=== PATIENT | female | born 1950 | race Caucasian/White ===

== ENCOUNTER → 2017-07-07 | Outpatient (CLI) | payer BC, MEDICARE ==
--- NOTE | 2017-07-09 07:08 | MM ---
Reason for exam: screening (asymptomatic). Last mammogram was performed 2 years and 6 months ago. History: Patient is postmenopausal and had first child at age 32. Benign stereotactic core biopsy of the left breast, August 2012. Physical Findings: A clinical breast exam by your physician is recommended on an annual basis and results should be correlated with mammographic findings. MG 3D Screening Mammo W/Cad Bilateral CC and MLO view(s) were taken. Prior study comparison: January 18, 2015, bilateral MG screening mammo w CAD. July 22, 2013, bilateral digital screening mammo w/CAD. The breast tissue is heterogeneously dense. This may lower the sensitivity of mammography. Finding: There are typically benign round calcifications in both breasts. Previous mammotome biopsy in the left breast. Asymmetric breast tissue left upper quadrant, stable. There is no discrete abnormality. ASSESSMENT: Benign, BI-RAD 2 RECOMMENDATION: Routine screening mammogram of both breasts in 1 year.
== END | disposition home or self-care (01) ==
LOC: RADMAMWWP 11:56
PROVIDERS: ATTEND Family Medicine
DX: Z12.31 Encounter for screening mammogram for malignant neoplasm of breast (principal)
CPT/HCPCS: 77063; G0202

== ENCOUNTER → 2018-11-22 | Outpatient (CLI) | payer MEDICARE ==
--- NOTE | 2018-11-25 11:05 | MM ---
Reason for exam: screening (asymptomatic). Last mammogram was performed 1 year and 5 months ago. History: Patient is postmenopausal and had first child at age 32. Benign stereotactic core biopsy of the left breast, August 2012. Physical Findings: A clinical breast exam by your physician is recommended on an annual basis and results should be correlated with mammographic findings. MG 3D Screening Mammo W/Cad Bilateral CC and MLO view(s) were taken. Prior study comparison: July 07, 2017, bilateral MG 3d screening mammo w/cad. January 18, 2015, bilateral MG screening mammo w CAD. There are benign appearing round calcifications bilaterally. No significant changes when compared with prior studies. ASSESSMENT: Benign, BI-RAD 2 RECOMMENDATION: Routine screening mammogram of both breasts in 1 year.
== END | disposition home or self-care (01) ==
LOC: RADMAMWWP 10:40
PROVIDERS: ATTEND Family Medicine
DX: Z12.31 Encounter for screening mammogram for malignant neoplasm of breast (principal)
CPT/HCPCS: 77063; 77067

== ENCOUNTER → 2023-03-13 | Outpatient (CLI) | payer MEDICARE ==
[2023-03-13 08:01] VITALS: BP 144/70; PULSE 69; RESP 17; TEMP 98.2
--- NOTE | 2023-03-13 08:12 | P.GSHP ---
History of Present Illness H&P Date: 03/13/23 Chief Complaint: Invasive lobular carcinoma left breast Babs is a 73 year old white female seen in consultation for Dr. Painting regarding a biopsy-proven left breast invasive lobular carcinoma with invasive ductal component. The patient underwent a bilateral screening mammogram on . This was revealed a 0.6 cm mass in the upper inner posterior left breast for which further evaluation with spot compression views and ultrasound were recommended. The patient on 7622 underwent a left breast diagnostic mammogram as well as left breast ultrasound. This confirmed a 0.7 cm nodular density on mammogram which did not show well on the ultrasound. On the ult rasound a hypoechoic 0.3 x 0.3 cm cystic-appearing mass was noted which did not appear to correlate in size or location with a new mammographic finding. The recommendation was for a stereotactic core biopsy. A stereotactic core biopsy done on 03-05-23 which revealed an invasive lobular carcinoma moderately to poorly differentiated. An associated invasive ductal carcinoma was also noted. This comprised 10-15% of the neoplasia. The tumor was ER +100%, and ID +100%. HER-2/deniz was equivocal and was sent for fresh evaluation. The Ki-67 was positive in approximately 80% of the malignant nuclei. Patient does not feel any lumps masses or nodules of concern in either breast. She was not complaining of any nipple discharge or skin changes. She had a stereo biopsy approximately 10 years ago of the left breast which was benign. She has not had any other surgeries on her breast. caffeine: occasional nicotine: none chocolate:occasional BCP: 20 years hormones: none Family history: father skin cancer not melanoma Hormonal History: menarche: 17 , age at first : 30, breast fed: yes menopause: hysterectomy removed both ovaries at 53; she had hadCIS in 1981 and had a cervical cone biopsy Surgical History: gallbladder hysterectomy tonsillectomy Medical History: chest pain UTI in the recent past vertigo HTN Social History: nicotine: none alcohol: none drugs: none - Constitutional Constitutional: Denies chills, Denies fever - EENT Eyes: bilateral dry eye, denies blurred vision, denies pain Ears: deny: decreased hearing, tinnitus Ears, nose, mouth and throat: Denies headache, Denies sore throat - Breasts Breasts: bilateral: as per HPI - Cardiovascular Cardiovascular: Reports chest pain - Respiratory Respiratory: Denies cough, Denies 7 - Gastrointestinal Comment: silent reflux; LPR - Genitourinary (Female) Genitourinary: Reports as per HPI, Denies dysuria, Denies hematuria - Menstruation Menstruation: Reports post hysterectomy - Musculoskeletal Musculoskeletal: Denies myalgias - Integumentary Integumentary: Denies pruritus, Denies rash - Neurological Neurological: Denies numbness, Denies weakness - Psychiatric Psychiatric: Denies anxiety, Denies depression - Endocrine Comment: recent 25 pound weight loss intentional Endocrine: Reports weight change, Denies fatigue - Hematologic/Lymphatic Comment: none - Allergic/Immunologic Allergic/Immunologic: Reports as per HPI Medications and Allergies Allergies Allergy/AdvReac Type Severity Reaction Status Date / Time hydromorphone [From Dilaudid] Allergy Nausea & Unverified 03/13/23 07:38 Vomiting Surgical - Exam - General no distress - Eyes normal ocular movement - ENT no hearing loss - Neck trachea midline - Respiratory normal respiratory effort, clear to auscultation - Cardiovascular Rhythm: regular Heart Sounds: normal: S1, S2 - Abdomen Abdomen: soft, non tender, no guarding, no rigid, no rebound - Integumentary normal turgor - Musculoskeletal normal gait - Psychiatric oriented to time, oriented to person, oriented to place, speech is normal, memory intact Breast Exam: BRA: 46A Inspection: bilateral grade 2 ptosis, right nipple inversion palpation: right breast: Multiple positional exam fibrocystic changes no discrete dominant masses or nodules of concern Right axilla: No adenopathy of concern Left breast: Multi-positional exam fibrocystic changes, Steri-Strips in place in the upper inner quadrant area with recent biopsy was performed no mass palpable Left axilla: No adenopathy of concern Results Mammogram and ultrasound reviewed Pathology report reviewed Assessment and Plan Assessment: Impression: Invasive lobular carcinoma left breast/with invasive ductal component stage I Dark nevus left breast Plan: Presentation of case at tumor board await Her2 results CC: Dr. Painting
== END ==
LOC: WWCWWP 07:31
PROVIDERS: ATTEND Surgery
DX: C50.912 Malignant neoplasm of unspecified site of left female breast (principal); I10 Essential (primary) hypertension; N63.22 Unspecified lump in the left breast, upper inner quadrant; Z87.440 Personal history of urinary (tract) infections; Z88.5 Allergy status to narcotic agent

== ENCOUNTER → 2023-05-14 | Outpatient (CLI) | payer MEDICARE ==
--- NOTE | 2023-05-14 12:31 | P.PN ---
Progress Note - Text Progress Note Date: 05/14/23 Babs 73-year-old white female status post left breast lumpectomy and sentinel node biopsy. Lumpectomy revealed invasive high-grade carcinoma with features of pleomorphic lobular carcinoma. All margins were negative for in situ or invasive cancer. The patient had a new inferior margin which was negative for DCIS or invasive carcinoma. It did show lobular neoplasia with focal atypical lobular hyperplasia/lobular carcinoma in situ. Focal atypical ductal hyperplasia was present as well. The closest margin was the superior margin and the tumor was 1 mm from the superior margin near the junction with the posterior margin. The tumor size was 9 mm in greatest dimension. The number of lymph nodes examined were 10, all were negative for metastatic disease. Additionally a compound melanocytic nevus was removed. Examination: Lungs: Clear Heart: Regular rate and rhythm Incisions: Clean and dry Impression: Patient doing well postoperatively Plan: Removal of sutures from incision for removal of nevus Appointment with radiation oncology Follow-up medical oncology Patient will follow up here in 4 months time CC: Dr. Mane
== END ==
LOC: WWCWWP 11:54
PROVIDERS: ATTEND Surgery
DX: C50.912 Malignant neoplasm of unspecified site of left female breast (principal); N60.92 Unspecified benign mammary dysplasia of left breast; Z88.5 Allergy status to narcotic agent

== ENCOUNTER → 2023-09-17 | Outpatient (CLI) | payer MEDICARE ==
[2023-09-17 11:32] VITALS: BP 141/79; PULSE 61; RESP 17; TEMP 98.1
--- NOTE | 2023-09-17 11:48 | P.PN ---
Subjective Progress Note Date: 09/17/23 Principal diagnosis: left breast invasive lobular cancer; stage IA Invasive lobular carcinoma left breast Babs is a 73 year old white female seen in consultation for Dr. Painting regarding a biopsy-proven left breast invasive lobular carcinoma with invasive ductal component. The patient underwent a bilateral screening mammogram on . This was revealed a 0.6 cm mass in the upper inner posterior left breast for which further evaluation with spot compression views and ultrasound were recommended. The patient on 7622 underwent a left breast diagnostic mammogram as well as left breast ultrasound. This confirmed a 0.7 cm nodular density on mammogram which did not show well on the ultrasound. On the ultrasound a hypoechoic 0.3 x 0.3 cm cystic-appearing mass was noted which did not appear to correlate in size or location with a new mammographic finding. The recommendation was for a stereotactic core biopsy. A stereotactic core biopsy done on 03-05-23 which revealed an invasive lobular carcinoma moderately to poorly differentiated. An associated invasive ductal carcinoma was also noted. This comprised 10-15% of the neoplasia. The tumor was ER +100%, and MS +100%. HER-2/deniz was equivocal and was sent for fresh evaluation. The Ki-67 was positive in approximately 80% of the malignant nuclei. Patient does not feel any lumps masses or nodules of concern in either breast. She was not complaining of any nipple discharge or skin changes. She had a stereo biopsy approximately 10 years ago of the left breast which was benign. She has not had any other surgeries on her breast. The patients case was presented at tumor board on 04-14-23. 1. needle localization lumpectomy and SNB done on 05-05-23; 9mm lesion, all margins (-), 10 nodes all (-) 2. MRI done on 04-07-23 seperate 0.7 cm nodule with suspicious kinectics 4mm from biopsy site, felt to be contiguous with the initial lesion 3. oncotype on surgical specimen; 12 4. dark nevus to be removed at that time of breast surgery; compound melanocytic nevis 5. genetic testing [facility] note medical oncology reviewed: 07-27-23 start anastrazole note radiation oncology reviewed 07-17-23 completed radiation 06-28-23 The patient is not complaining of any new lumps masses or nodules of concern in either breast. caffeine: occasional nicotine: none chocolate:occasional BCP: 20 years hormones: none Family history: father skin cancer not melanoma Hormonal History: menarche: 17 , age at first : 30, breast fed: yes menopause: hysterectomy removed both ovaries at 53; she had hadCIS in 1981 and had a cervical cone biopsy Surgical History: gallbladder hysterectomy tonsillectomy left breast lumpectomy and SNB on 05-05-24 Medical History: chest pain UTI in the recent past vertigo HTN Social History: nicotine: none alcohol: none drugs: none - Constitutional Constitutional: Denies chills, Denies fever - EENT Eyes: bilateral dry eye, denies blurred vision, denies pain Ears: deny: decreased hearing, tinnitus Ears, nose, mouth and throat: Denies headache, Denies sore throat - Breasts Breasts: bilateral: as per HPI - Cardiovascular Cardiovascular: Reports chest pain - Respiratory Respiratory: Denies cough - Gastrointestinal Comment: silent reflux; LPR - Genitourinary (Female) Genitourinary: Reports as per HPI, Denies dysuria, Denies hematuria - Menstruation Menstruation: Reports post hysterectomy - Musculoskeletal Musculoskeletal: Denies myalgias - Integumentary Integumentary: Denies pruritus, Denies rash - Neurological Neurological: Denies numbness, Denies weakness - Psychiatric Psychiatric: Denies anxiety, Denies depression - Endocrine Comment: recent 25 pound weight loss intentional Endocrine: Reports weight change, Denies fatigue - Hematologic/Lymphatic Comment: none - Allergic/Immunologic Allergic/Immunologic: Reports as per HPI Medications and Allergies Allergies Allergy/AdvReac Type Severity Reaction Status Date / Time hydromorphone [From Dilaudid] Allergy Nausea & Unverified 03/13/23 07:38 Vomiting Objective - Vital Signs Vital signs: Vital Signs Temp 98.1 F 09/17/23 11:11 Pulse 61 09/17/23 11:11 Resp 17 09/17/23 11:11 BP 141/79 09/17/23 11:11 Pulse Ox 99 09/17/23 11:11 FiO2 Intake & Output 09/16/23 09/17/23 09/17/23 18:59 06:59 18:59 Weight 96.615 kg - Constitutional General appearance: Present: cooperative - EENT Eyes: Present: edentulous ENT: Present: hearing grossly normal - Neck Neck: Present: normal ROM - Respiratory Respiratory: bilateral: CTA - Cardiovascular Heart sounds: normal: S1, S2 - Integumentary Integumentary: Present: normal turgor - Musculoskeletal Musculoskeletal: Present: gait normal - Psychiatric Psychiatric: Present: A&O x's 3, appropriate affect, intact judgment & insight - Additional findings Additional findings: Breast Exam: BRA: 46A Inspection: bilateral grade 2 ptosis, right nipple inversion palpation: right breast: Multi-positional exam fibrocystic changes no discrete dominant masses or nodules of concern Right axilla: No adenopathy of concern Left breast: Multi-positional exam fibrocystic changes, no dominate masses or nodules of concern; post surgical and radiation changes Left axilla: No adenopathy of concern Assessment and Plan Assessment: Impression: Patient's status post left breast lumpectomy and axillary node sampling on ; Radiation therapy on On anastrozole No evidence of any recurrent cancer Patient's last bilateral mammogram was done on 02-05-23 Plan: Bilateral mammogram January 2024 with appointment at that time Continue anastrozole Continue to follow with medical and radiation oncology Patient is traveling between here in [place] and will see us after her next bilateral mammogram in January CC: Dr. Painting
== END ==
LOC: WWCWWP 10:29
PROVIDERS: ATTEND Surgery
DX: N63.22 Unspecified lump in the left breast, upper inner quadrant (principal); I10 Essential (primary) hypertension; Z87.440 Personal history of urinary (tract) infections; Z86.69 Personal history of other diseases of the nervous system and sense organs; Z92.3 Personal history of irradiation; Z88.5 Allergy status to narcotic agent; Z85.3 Personal history of malignant neoplasm of breast; Z79.811 Long term (current) use of aromatase inhibitors; Z79.899 Other long term (current) drug therapy

== ENCOUNTER → 2024-02-08 | Outpatient (CLI) | payer MEDICARE ==
--- NOTE | 2024-02-08 12:42 | MM ---
Reason for Exam: Hx of breast cancer, conservation therapy. Last mammogram was performed 5 year(s) and 0 month(s) ago. Patient History: Menarche at age 14. First Full-Term at age 32. Late child-bearing (after 31). Left ovary removed at age 53. Right ovary removed at age 53. Hysterectomy at age 53. Postmenopausal. Patient has history of breast feeding. Breast cancer, left, age 73. 05/05/2023, Lumpectomy on the Left side. 05/05/2023, Malignant MG pre op needle loc LT on the left side. 08/2012, Benign Stereotactic Core Biopsy on the left side. Prior Study Comparison: 07/22/2013 Bilateral Screening Mammogram, [facility]. 07/07/2017 Bilateral Screening Mammogram, [facility]. 11/22/2018 Bilateral Screening Mammogram, [facility]. 05/05/2023 Left MG 3D follow up no charge LT, [facility]. Tissue Density: The breasts are heterogeneously dense, which may obscure small masses. Findings: Analyzed By CAD. Postsurgical and posttreatment change left breast. This can be reassessed at short interval follow-up. Inferior asymmetric density right MLO view anterior to middle depth disperses on additional views compatible with superimposition shadow. Unchanged asymmetric density lateral subareolar right breast on the CC view. Benign bilateral oil cyst calcifications. Otherwise, no significant change. Overall Assessment: Probably benign, BI-RAD 3 Management: Diagnostic Mammogram of the left breast in 6 months. In order to assess for any evolving posttreatment change. Results were given to the patient verbally at the time of exam. Patient should continue monthly self-breast exams. A clinical breast exam by your physician is recommended on an annual basis. This exam should not preclude additional follow-up of suspicious palpable abnormalities. Electronically signed and approved by: Miguel De Luna M.D. Radiologist
== END | disposition home or self-care (01) ==
LOC: RADMAMWWP 10:42
PROVIDERS: ATTEND Surgery
DX: R92.333 Mammographic heterogeneous density, bilateral breasts (principal); Z85.3 Personal history of malignant neoplasm of breast; Z78.0 Asymptomatic menopausal state
CPT/HCPCS: 77066; G0279; 77062

== ENCOUNTER → 2024-02-18 | Outpatient (CLI) | payer MEDICARE ==
[2024-02-18 15:48] VITALS: BP 132/82; PULSE 60; RESP 16; TEMP 98.3
--- NOTE | 2024-02-18 16:26 | P.PN ---
Subjective Progress Note Date: 02/18/24 Principal diagnosis: left breast invasive lobular carcinoma stage IA, 2022 left breast invasive lobular cancer; stage IA, 2022 Babs is a 74 year old white female seen in consultation for Dr. Painting regarding a biopsy-proven left breast invasive lobular carcinoma with invasive ductal component. The patient underwent a bilateral screening mammogram on . This was revealed a 0.6 cm mass in the upper inner posterior left breast for which further evaluation with spot compression views and ultrasound were recommended. The patient on 7622 underwent a left breast diagnostic mammogram as well as left breast ultrasound. This confirmed a 0.7 cm nodular density on mammogram which did not show well on the ultrasound. On the ultrasound a hypoechoic 0.3 x 0.3 cm cystic-appearing mass was noted which did not appear to correlate in size or location with a new mammographic finding. The recommendation was for a stereotactic core biopsy. A stereotactic core biopsy done on 03-05-23 which revealed an invasive lobular carcinoma moderately to poorly differentiated. An associated invasive ductal carcinoma was also noted. This comprised 10-15% of the neoplasia. The tumor was ER +100%, and UT +100%. HER-2/deniz was equivocal and was sent for fish evaluation. The Ki-67 was positive in approximately 80% of the malignant nuclei. Patient did not feel any lumps masses or nodules of concern in either breast. She was not complaining of any nipple discharge or skin changes. She had a stereo biopsy approximately 10 years ago of the left breast which was benign. She had not had any other surgeries on her breast. The patients case was presented at tumor board on 04-14-23. 1. needle localization lumpectomy and SNB done on 05-05-23; 9mm lesion, all margins (-), 10 nodes all (-) 2. MRI done on 04-07-23 seperate 0.7 cm nodule with suspicious kinectics 4mm from biopsy site, felt to be contiguous with the initial lesion 3. oncotype on surgical specimen; 12 4. dark nevus to be removed at that time of breast surgery; compound melanocytic nevis 5. genetic testing [facility] note medical oncology reviewed: 12-22-23 patient on anastrazole; note radiation oncology reviewed 07-17-23 completed radiation 06-28-23; 1 week of radiation The patient is not complaining of any new lumps masses or nodules of concern in either breast. Bilateral mammogram on 02-08-24 BIRAD 3; repeat left breast mammogram in 6 months caffeine: occasional nicotine: none chocolate:occasional BCP: 20 years hormones: none Family history: father skin cancer not melanoma Hormonal History: menarche: 17 , age at first : 30, breast fed: yes menopause: hysterectomy removed both ovaries at 53; she had hadCIS in 1981 and had a cervical cone biopsy Surgical History: gallbladder hysterectomy tonsillectomy left breast lumpectomy and SNB on 05-05-23 Medical History: chest pain UTI in the recent past vertigo HTN Social History: nicotine: none alcohol: none drugs: none - Constitutional Constitutional: Denies chills, Denies fever - EENT Eyes: bilateral dry eye, denies blurred vision, denies pain Ears: deny: decreased hearing, tinnitus Ears, nose, mouth and throat: Denies headache, Denies sore throat - Breasts Breasts: bilateral: as per HPI - Cardiovascular Cardiovascular: Reports chest pain - Respiratory Respiratory: Denies cough - Gastrointestinal Comment: silent reflux; LPR - Genitourinary (Female) Genitourinary: Reports as per HPI, Denies dysuria, Denies hematuria - Menstruation Menstruation: Reports post hysterectomy - Musculoskeletal Musculoskeletal: Denies myalgias - Integumentary Integumentary: Denies pruritus, Denies rash - Neurological Neurological: Denies numbness, Denies weakness - Psychiatric Psychiatric: Denies anxiety, Denies depression - Endocrine Comment: recent 25 pound weight loss intentional Endocrine: Reports weight change, Denies fatigue - Hematologic/Lymphatic Comment: none - Allergic/Immunologic Allergic/Immunologic: Reports as per HPI Medications and Allergies Allergies Allergy/AdvReac Type Severity Reaction Status Date / Time hydromorphone [From Dilaudid] Allergy Nausea & Unverified 03/13/23 07:38 Vomiting Objective - Vital Signs Vital signs: Vital Signs Temp 98.3 F 02/18/24 15:46 Pulse 60 02/18/24 15:46 Resp 16 02/18/24 15:46 BP 132/82 02/18/24 15:46 Pulse Ox 100 02/18/24 15:46 FiO2 Intake & Output 02/17/24 02/18/24 02/18/24 18:59 06:59 18:59 Weight 95.254 kg - Constitutional General appearance: Present: cooperative - EENT Eyes: Present: EOMI ENT: Present: hearing grossly normal - Neck Neck: Present: normal ROM - Respiratory Respiratory: bilateral: CTA - Cardiovascular Heart sounds: normal: S1, S2 - Integumentary Integumentary: Present: normal turgor - Musculoskeletal Musculoskeletal: Present: gait normal - Psychiatric Psychiatric: Present: A&O x's 3, appropriate affect, intact judgment & insight - Additional findings Additional findings: Breast Exam: BRA: 46A Inspection: bilateral grade 2 ptosis, right nipple inversion palpation: right breast: Multi-positional exam fibrocystic changes no discrete dominant masses or nodules of concern Right axilla: No adenopathy of concern Left breast: Multi-positional exam fibrocystic changes, no dominate masses or no dules of concern; post surgical and radiation changes Left axilla: No adenopathy of concern Assessment and Plan Assessment: Impression: Patient's status post left breast lumpectomy and axillary node sampling on ; Radiation therapy on On anastrozole No evidence of any recurrent cancer Patient's last bilateral mammogram was done on 02-08-24 Plan: Left breast mammogram 6 months with examination at that time Bilateral mammogram in 1 year Continue anastrozole Continue to follow with medical and radiation oncology CC: Dr. Painting
== END ==
LOC: WWCWWP 14:50
PROVIDERS: ATTEND Surgery
DX: C50.212 Malignant neoplasm of upper-inner quadrant of left female breast (principal); Z17.0 Estrogen receptor positive status [ER+]; Z92.3 Personal history of irradiation; Z48.817 Encounter for surgical aftercare following surgery on the skin and subcutaneous tissue; Z88.5 Allergy status to narcotic agent

== ENCOUNTER → 2024-08-16 | Outpatient (CLI) | payer MEDICARE ==
--- NOTE | 2024-08-16 10:12 | MM ---
Reason for Exam: Follow-up at short interval from prior study. Last screening mammogram was performed 6 month(s) ago. Patient History: Menarche at age 14. First Full-Term at age 32. Late child-bearing (after 31). Left ovary removed at age 53. Right ovary removed at age 53. Hysterectomy at age 53. Postmenopausal. Patient has history of breast feeding. Breast cancer, left, age 73. 05/05/2023, Lumpectomy on the Left side. 05/05/2023, Malignant MG pre op needle loc LT on the left side. 08/2012, Benign Stereotactic Core Biopsy on the left side. 2022, Radiation Therapy on the left side. Prior Study Comparison: 11/22/2018 Bilateral Screening Mammogram, [facility]. 05/05/2023 Left MG 3D follow up no charge LT, [facility]. 02/08/2024 Bilateral MG 3D diag mammo w/cad [facility], [facility]. Tissue Density: Left: The breasts are heterogeneously dense, which may obscure small masses. Findings: Analyzed By CAD. Postprocedural changes left breast with surgical clips in place. Few scattered calcifications present. There remains skin thickening of the left breast. No new suspicious masses, calcifications or distortions. Overall Assessment: Benign, BI-RAD 2 Management: Diagnostic Mammogram of both breasts in 6 months. Results were given to the patient verbally at the time of exam. Patient should continue monthly self-breast exams. A clinical breast exam by your physician is recommended on an annual basis. This exam should not preclude additional follow-up of suspicious palpable abnormalities. Note on Kacie scores and lifetime risk: 1. A Kacie score greater than 3% is considered moderate risk. If this is the case, consider specialist referral to assess eligibility for a risk reducing agent. 2. If overall lifetime risk for the development of breast cancer is 20% or higher, the patient may qualify for future screening with alternating mammogram and breast MRI. [facility], , 08/16/2024 10:08 AM. Electronically signed and approved by: Scott Mccloud DO
== END | disposition home or self-care (01) ==
LOC: RADMAMWWP 09:31
PROVIDERS: ATTEND Surgery
DX: R92.333 Mammographic heterogeneous density, bilateral breasts (principal); Z85.3 Personal history of malignant neoplasm of breast; Z90.722 Acquired absence of ovaries, bilateral; Z78.0 Asymptomatic menopausal state
CPT/HCPCS: 77065; G0279; 77061

== ENCOUNTER → 2024-08-19 | Outpatient (CLI) | payer MEDICARE ==
[2024-08-19 12:20] VITALS: BP 146/84; PULSE 66; RESP 16; TEMP 97.5
--- NOTE | 2024-08-19 12:34 | P.PN ---
Subjective Progress Note Date: 08/19/24 Principal diagnosis: left breast invasive lobular carcinoma stage IA, 202208-19-24 Principal diagnosis: left breast invasive lobular carcinoma stage IA, 2022 Babs is a 74 year old white female seen in consultation for Dr. Painting regarding a biopsy-proven left breast invasive lobular carcinoma with invasive ductal component. The patient underwent a bilateral screening mammogram on . This was revealed a 0.6 cm mass in the upper inner posterior left breast for which further evaluation with spot compression views and ultrasound were recommended. The patient on 7622 underwent a left breast diagnostic m ammogram as well as left breast ultrasound. This confirmed a 0.7 cm nodular density on mammogram which did not show well on the ultrasound. On the ultrasound a hypoechoic 0.3 x 0.3 cm cystic-appearing mass was noted which did not appear to correlate in size or location with a new mammographic finding. The recommendation was for a stereotactic core biopsy. A stereotactic core biopsy done on 03-05-23 which revealed an invasive lobular carcinoma moderately to poorly differentiated. An associated invasive ductal carcinoma was also noted. This comprised 10-15% of the neoplasia. The tumor was ER +100%, and AL +100%. HER-2/deniz was equivocal and was sent for fish evaluation. The Ki-67 was positive in approximately 80% of the malignant nuclei. Patient did not feel any lumps masses or nodules of concern in either breast. She was not complaining of any nipple discharge or skin changes. She had a stereo biopsy approximately 10 years ago of the left breast which was benign. She had not had any other surgeries on her breast. The patients case was presented at tumor board on 04-14-23. 1. needle localization lumpectomy and SNB done on 05-05-23; 9mm lesion, all margins (-), 10 nodes all (-) 2. MRI done on 04-07-23 seperate 0.7 cm nodule with suspicious kinectics 4mm from biopsy site, felt to be contiguous with the initial lesion 3. oncotype on surgical specimen; 12 4. dark nevus to be removed at that time of breast surgery; compound melanocytic nevis 5. genetic testing [facility] note medical oncology reviewed: 12-22-23 patient on anastrazole; note radiation oncology reviewed 07-17-23 completed radiation 06-28-23; 1 week of radiation The patient is not complaining of any new lumps masses or nodules of concern in either breast. Bilateral mammogram on 02-08-24 BIRAD 3; repeat left breast mammogram in 6 months left breast mammogram repeated 08-16-24, BIRAD 2, personally reviewed and interpreted; she is not complaining of any new lumps masses or nodules of concern in either breast caffeine: occasional nicotine: none chocolate:occasional BCP: 20 years hormones: none Family history: father skin cancer not melanoma Hormonal History: menarche: 17 , age at first : 30, breast fed: yes menopause: hysterectomy removed both ovaries at 53; she had hadCIS in 1981 and had a cervical cone biopsy Surgical History: gallbladder hysterectomy tonsillectomy left breast lumpectomy and SNB on 05-05-23 Medical History: chest pain UTI in the recent past vertigo HTN Social History: nicotine: none alcohol: none drugs: none - Constitutional Constitutional: Denies chills, Denies fever - EENT Eyes: bilateral dry eye, denies blurred vision, denies pain Ears: deny: decreased hearing, tinnitus Ears, nose, mouth and throat: Denies headache, Denies sore throat - Breasts Breasts: bilateral: as per HPI - Cardiovascular Cardiovascular: Reports chest pain - Respiratory Respiratory: Denies cough - Gastrointestinal Comment: silent reflux; LPR - Genitourinary (Female) Genitourinary: Reports as per HPI, Denies dysuria, Denies hematuria - Menstruation Menstruation: Reports post hysterectomy - Musculoskeletal Musculoskeletal: Denies myalgias - Integumentary Integumentary: Denies pruritus, Denies rash - Neurological Neurological: Denies numbness, Denies weakness - Psychiatric Psychiatric: Denies anxiety, Denies depression - Endocrine Comment: recent 25 pound weight loss intentional Endocrine: Reports weight change, Denies fatigue - Hematologic/Lymphatic Comment: none - Allergic/Immunologic Allergic/Immunologic: Reports as per HPI Medications and Allergies Allergies Allergy/AdvReac Type Severity Reaction Status Date / Time hydromorphone [From Dilaudid] Allergy Nausea & Unverified 03/13/23 07:38 Vomiting Objective - Vital Signs Vital signs: Vital Signs Temp 97.5 F L 08/19/24 12:18 Pulse 66 08/19/24 12:18 Resp 16 08/19/24 12:18 BP 146/84 08/19/24 12:18 Pulse Ox 100 08/19/24 12:18 FiO2 Intake & Output 08/18/24 08/19/24 08/19/24 18:59 06:59 18:59 Weight 99.79 kg - Constitutional General appearance: Present: cooperative - EENT Eyes: Present: EOMI ENT: Present: hearing grossly normal - Neck Neck: Present: normal ROM - Respiratory Respiratory: bilateral: CTA - Cardiovascular Rhythm: regular Heart sounds: normal: S1, S2 - Integumentary Integumentary: Present: normal turgor - Musculoskeletal Musculoskeletal: Present: gait normal - Psychiatric Psychiatric: Present: A&O x's 3, appropriate affect, intact judgment & insight - Additional findings Additional findings: Breast Exam: BRA: 46A Inspection: bilateral grade 2 ptosis, right nipple inversion palpation: right breast: Multi-positional exam fibrocystic changes no discrete dominant masses or nodules of concern, fungal infection under right breast Right axilla: No adenopathy of concern Left breast: Multi-positional exam fibrocystic changes, no dominate masses or nodules of concern; post surgical and radiation changes Left axilla: No adenopathy of concern Assessment and Plan Assessment: Impression: Patient's status post left breast lumpectomy and axillary node sampling on ; Radiation therapy on On anastrozole No evidence of any recurrent cancer Patient's last bilateral mammogram was done on 02-08-24; repeat left breast mammogram on 08-16-24 fungal infection under right breast Plan: Bilateral mammogram in 6 months with appointment Continue anastrozole Continue to follow with medical and radiation oncology nystatin under right breast follow up sooner any concerns CC: Dr. Painting
== END ==
LOC: WWCWWP 11:00
PROVIDERS: ATTEND Surgery
DX: Z48.3 Aftercare following surgery for neoplasm (principal); Z51.0 Encounter for antineoplastic radiation therapy; B36.8 Other specified superficial mycoses; Z88.5 Allergy status to narcotic agent; Z17.0 Estrogen receptor positive status [ER+]; Z17.21 Progesterone receptor positive status

== ENCOUNTER → 2024-12-08 | Outpatient (CLI) | payer MEDICARE ==
--- NOTE | 2024-12-08 11:01 | MM ---
Reason for Exam: Clinical finding. Last screening mammogram was performed 10 month(s) ago. Indicated Problems: Non-bloody discharge of the left side (Clear) for 6 Month(s). Patient History: Menarche at age 14. First Full-Term at age 32. Late child-bearing (after 30). Left ovary removed at age 53. Right ovary removed at age 53. Hysterectomy at age 53. Postmenopausal. Patient has history of breast feeding. Breast cancer, left, age 73. 05/05/2023, Lumpectomy on the Left side. 05/05/2023, Malignant MG pre op needle loc LT on the left side. 08/2012, Benign Stereotactic Core Biopsy on the left side. 2022, Radiation Therapy on the left side. Prior Study Comparison: 07/07/2017 Bilateral Screening Mammogram, [facility]. 11/22/2018 Bilateral Screening Mammogram, [facility]. 05/05/2023 Left MG 3D follow up no charge LT, [facility]. 02/08/2024 Bilateral MG 3D diag mammo w/cad SANDRO, [facility]. 08/16/2024 Left MG 3D diag mammo w/cad LT, [facility]. Tissue Density: Left: The breasts are heterogeneously dense, which may obscure small masses. Findings: Analyzed By CAD. Persistent posttreatment changes to the left breast with surgical clips and central distortion. Persistent skin thickening. There are regional benign-appearing round calcifications redemonstrated. No suspicious new mass or worrisome cluster of microcalcification in the left breast. Overall Assessment: Incomplete: need additional imaging evaluation, BI-RAD 0 Management: Diagnostic Breast Ultrasound of the left breast. Targeted ultrasound subareolar region left breast. Results were given to the patient verbally at the time of exam. Patient should continue monthly self-breast exams. A clinical breast exam by your physician is recommended on an annual basis. This exam should not preclude additional follow-up of suspicious palpable abnormalities. Note on Kacie scores and lifetime risk: 1. A Kacie score greater than 3% is considered moderate risk. If this is the case, consider specialist referral to assess eligibility for a risk reducing agent. 2. If overall lifetime risk for the development of breast cancer is 20% or higher, the patient may qualify for future screening with alternating mammogram and breast MRI. [facility], , 12/08/2024 10:58 AM. Electronically signed and approved by: Douglas Lambert M.D.
--- NOTE | 2024-12-08 11:23 | USB ---
Reason for Exam: Clinical finding. Patient History: Menarche at age 14. First Full-Term at age 32. Late child-bearing (after 30). Left ovary removed at age 53. Right ovary removed at age 53. Hysterectomy at age 53. Postmenopausal. Patient has history of breast feeding. Breast cancer, left, age 73. 05/05/2023, Lumpectomy on the Left side. 05/05/2023, Malignant MG pre op needle loc LT on the left side. 08/2012, Benign Stereotactic Core Biopsy on the left side. 2022, Radiation Therapy on the left side. Technique: Method: Targeted. Doppler: Color. Patient Position: Supine. Prior Study Comparison: 05/05/2023 Left MG 3D follow up no charge LT, [facility]. 02/08/2024 Bilateral MG 3D diag mammo w/cad SANDRO, [facility]. 08/16/2024 Left MG 3D diag mammo w/cad LT, [facility]. Findings: The periareolar of the left breast, the axilla of the left breast and the retroareolar of the left breast were scanned. Targeted ultrasound. Behind the nipple there is irregular hypoechoic 1.4 x 2.1 cm area with focal vessel and some posterior shadowing. While findings could reflect scar tissue/posttreatment change given proximity to an inverting nipple and patient's symptoms of discharge, tissue sampling is advised. Overall Assessment: Suspicious, BI-RAD 4 Management: Ultrasound Core Biopsy of the left breast. A clinical breast exam by your physician is recommended on an annual basis and results should be correlated with mammographic findings. This exam should not preclude additional follow-up of suspicious palpable abnormalities. Results were given to the patient verbally at the time of exam. [facility], , 12/08/2024 11:20 AM. Electronically signed and approved by: Douglas Lambert M.D.
== END | disposition home or self-care (01) ==
LOC: RADMAMWWP 10:14
PROVIDERS: ATTEND Surgery
DX: R92.332 Mammographic heterogeneous density, left breast (principal); Z85.3 Personal history of malignant neoplasm of breast; Z78.0 Asymptomatic menopausal state
CPT/HCPCS: 77061; 77065

== ENCOUNTER → 2024-12-14 | Day surgery (SDC) | payer MEDICARE ==
--- NOTE | 2024-12-14 08:25 | USB ---
Findings: Technique utilized:US discontinued breast bx LT Image; Ultrasound imaging of: Area of concern in the retroareolar region and at the site of prior lumpectomy. Ultrasound imaging prior to biopsy and confirm stable appearance of postsurgical bed. No new enlarging mass or suspicious features. Mammogram is also stable. Management: Diagnostic Mammogram of both breasts in 2 months. A clinical breast exam by your physician is recommended on an annual basis and results should be correlated with mammographic findings. This exam should not preclude additional follow-up of suspicious palpable abnormalities. Results were given to the patient verbally at the time of exam. [facility], , 12/14/2024 8:22 AM. Electronically signed and approved by: Scott Mccloud DO
== END ==
LOC: RADUSWWP 07:09
PROVIDERS: ATTEND Surgery
DX: Z53.8 Procedure and treatment not carried out for other reasons (principal); R92.8 Other abnormal and inconclusive findings on diagnostic imaging of breast

== ENCOUNTER → 2025-03-10 | Outpatient (CLI) | payer MEDICARE ==
[2025-03-10 09:13] VITALS: BP 159/81; PULSE 68; RESP 16; TEMP 98.1
--- NOTE | 2025-03-10 09:44 | P.PN ---
Subjective Progress Note Date: 03/10/25 Progress Note Date: 03-10-25 Principal diagnosis: left breast invasive lobular carcinoma stage IA, 202208-19-24 Principal diagnosis: left breast invasive lobular carcinoma stage IA, 2022 Babs is a 74 year old white female seen in consultation for Dr. Painting regarding a biopsy-proven left breast invasive lobular carcinoma with invasive ductal component. The patient underwent a bilateral screening mammogram on . This was revealed a 0.6 cm mass in the upper inner posterior left breast for which further evaluation with spot compression views and ultrasound were recommended. The patient on 7622 underwent a left breast diagnostic mammogram as well as left breast ultrasound. This confirmed a 0.7 cm nodular density on mammogram which did not show well on the ultrasound. On the ultrasound a hypoechoic 0.3 x 0.3 cm cystic-appearing mass was noted which did not appear to correlate in size or location with a new mammographic finding. The recommendation was for a stereotactic core biopsy. A stereotactic core biopsy done on 03-05-23 which revealed an invasive lobular carcinoma moderately to poorly differentiated. An associated invasive ductal carcinoma was also noted. This comprised 10-15% of the neoplasia. The tumor was ER +100%, and DC +100%. HER-2/deniz was equivocal and was sent for fish evaluation. The Ki-67 was positive in approximately 80% of the malignant nuclei. Patient did not feel any lumps masses or nodules of concern in either breast. She was not complaining of any nipple discharge or skin changes. She had a stereo biopsy approximately 10 years ago of the left breast which was benign. She had not had any other surgeries on her breast. The patients case was presented at tumor board on 04-14-23. 1. needle localization lumpectomy and SNB done on 05-05-23; 9mm lesion, all margins (-), 10 nodes all (-) 2. MRI done on 04-07-23 separate 0.7 cm nodule with suspicious kinectics 4mm from biopsy site, felt to be contiguous with the initial lesion 3. oncotype on surgical specimen; 4. dark nevus to be removed at that time of breast surgery; compound melanocytic nevis 5. genetic testing [facility] note medical oncology reviewed: 12-22-23 patient on anastrazole; note radiation oncology reviewed 07-17-23 completed radiation 06-28-23; 1 week of radiation The patient is not complaining of any new lumps masses or nodules of concern in either breast. Bilateral mammogram on 02-08-24 BIRAD 3; repeat left breast mammogram in 6 months left breast mammogram repeated 08-16-24, BIRAD 2, personally reviewed and interpreted; she is not complaining of any new lumps masses or nodules of concern in either breast 12-30-24 74-year-old white female status post lumpectomy for invasive lobular carcinoma and sentinel node biopsy on 05-05-2023 for a 9 mm lesion all margins negative, 10 nodes all negative Oncotype score 12 Bilateral mammogram in 02-08-2024 was BI-RADS 3 and repeat left breast mammogram in 6 months this was done on 08 16 24 and felt to be BI-RADS 2 Repeat left breast mammogram and ultrasound performed on 12 08 24. The findings on the ultrasound revealed behind the nipple an irregular 1.5 x 2.1 cm area of focal vessel and some posterior shadowing. While it was felt that this could reflect scar a ultrasound core biopsy was recommended. An attempt at this was made on 12 14 24 but the lesion could not be reproduced. Therefore it was recommended that the patient undergo repeat bilateral mammogram in 2 months. She is complaining of some crusty nipple discharge on the left for about 4 months and it is daily, it is not bloody it is not painful She is not complaining of any new lumps masses or nodules of concern in either breast Note Dr. Mcknight from 08 19 24 reviewed; on anastrozole 03-10-25 Patient is complaining of nipple crusting of the left areola. She recently went on a cruise and had a fall. She suffered some trauma to the left mid axillary region. A CT scan of the chest abdomen and pelvis was done on February 16, 2025. This revealed intact chest abdomen and pelvis. Demineralization no evidence of acute or subacute fracture. Chest wall vertebral body heights and alignment were preserved with no acute adenopathy malady. No pneumothorax or consolidation. Trace left pleural effusion with minimal basilar atelectasis. At this time the nipple crusting has resolved and she has some crusty nipple discharge which has also decreased. Bilateral mammogram 03 10 25 This revealed extensive postsurgical and posttreatment changes in the left breast. This was considered BI-RADS 3 and repeat left breast mammogram in 6 months recommended caffeine: occasional nicotine: none chocolate:occasional BCP: 20 years hormones: none Family history: father skin cancer not melanoma Hormonal History: menarche: 17 , age at first : 30, breast fed: yes menopause: hysterectomy removed both ovaries at 53; she had hadCIS in 1981 and had a cervical cone biopsy Surgical History: gallbladder hysterectomy tonsillectomy left breast lumpectomy and SNB on 05-05-23 Medical History: chest pain UTI in the recent past vertigo HTN Social History: nicotine: none alcohol: none drugs: none - Constitutional Constitutional: Denies chills, Denies fever - EENT Eyes: bilateral dry eye, denies blurred vision, denies pain Ears: deny: decreased hearing, tinnitus Ears, nose, mouth and throat: Denies headache, Denies sore throat - Breasts Breasts: bilateral: as per HPI - Cardiovascular Cardiovascular: Reports chest pain - Respiratory Respiratory: Denies cough - Gastrointestinal Comment: silent reflux; LPR - Genitourinary (Female) Genitourinary: Reports as per HPI, Denies dysuria, Denies hematuria - Menstruation Menstruation: Reports post hysterectomy - Musculoskeletal Musculoskeletal: Denies myalgias - Integumentary Integumentary: Denies pruritus, Denies rash - Neurological Neurological: Denies numbness, Denies weakness - Psychiatric Psychiatric: Denies anxiety, Denies depression - Endocrine Comment: recent 25 pound weight loss intentional Endocrine: Reports weight change, Denies fatigue - Hematologic/Lymphatic Comment: none - Allergic/Immunologic Allergic/Immunologic: Reports as per HPI Medications and Allergies Allergies Allergy/AdvReac Type Severity Reaction Status Date / Time hydromorphone [From Dilaudid] Allergy Nausea & Unverified 03/13/23 07:38 Vomiting Objective - Vital Signs Vital signs: Vital Signs Temp 98.1 F 03/10/25 09:05 Pulse 68 03/10/25 09:05 Resp 16 03/10/25 09:05 BP 159/81 03/10/25 09:05 Pulse Ox 98 03/10/25 09:05 FiO2 Intake & Output 03/09/25 03/10/25 03/10/25 18:59 06:59 18:59 Weight 95.254 kg - Constitutional General appearance: Present: cooperative - EENT Eyes: Present: EOMI ENT: Present: hearing grossly normal - Neck Neck: Present: normal ROM - Respiratory Respiratory: bilateral: CTA - Cardiovascular Rhythm: regular Heart sounds: normal: S1, S2 - Integumentary Integumentary: Present: normal turgor - Musculoskeletal Musculoskeletal: Present: gait normal - Psychiatric Psychiatric: Present: A&O x's 3, appropriate affect, intact judgment & insight - Additional findings Additional findings: Breast Exam: Bra: sports bra Xlarge for her chest girth, not breast size inspection: Postsurgery and radiation changes left breast Palpation: Right breast: Multi positional exam no dominant masses or nodules of concern Right axilla: No adenopathy of concern Left breast: Multi positional exam no dominant masses or nodules of concern, there is minimal crusting from discharge from the left ductal area at the nipple but no crusting of the areola itself Left axilla: No adenopathy of concern Assessment and Plan Assessment: Impression: Patient's status post left breast lumpectomy and axillary node sampling on ; Radiation therapy on On anastrozole No evidence of any recurrent cancer Patient's last bilateral mammogram was done on 02-08-24; repeat left breast mammogram on 08-16-24; left breast mammogram on 12-08-24 and left breast ultrasound recommended biopsy which was cancelled by radiology; diagnositc mammogram bilateral breast in 2 months fungal infection under right breast healed CT scan performed on 02 16 25 secondary to trauma revealed an effusion on the left for which she is seeing a seam closer in 1 week Bilateral mammogram 03 10 25 BI-RADS 3 repeat left breast mammogram in 6 months Plan: MRI of the breast secondary to crusty discharge on the left side and prior history of invasive lobular carcinoma with invasive ductal component; if declined full breast ultrasound of the left breast and follow up Follow-up after MRI completed Left breast mammogram and examination in 6 months Nothing on examination at this time which would allow for a punch biopsy of the areola on the left Continue anastrozole Continue to follow with medical and radiation oncology nystatin under right breast as needed follow up sooner any concerns CC: Dr. Painting
== END ==
LOC: WWCWWP 08:00
PROVIDERS: ATTEND Surgery
DX: Z85.3 Personal history of malignant neoplasm of breast (principal); Z98.890 Other specified postprocedural states; Z92.3 Personal history of irradiation; Z88.5 Allergy status to narcotic agent

== ENCOUNTER → 2025-03-10 | Outpatient (CLI) | payer MEDICARE ==
--- NOTE | 2025-03-10 07:58 | MM ---
Reason for Exam: Follow-up at short interval from prior study. Last mammogram was performed 1 year(s) and 1 month(s) ago. Patient History: Menarche at age 14. First Full-Term at age 32. Late child-bearing (after 30). Left ovary removed at age 53. Right ovary removed at age 53. Hysterectomy at age 53. Postmenopausal. Patient has history of breast feeding. Breast cancer, left, age 73. 05/05/2023, Lumpectomy on the Left side. 05/05/2023, Malignant MG pre op needle loc LT on the left side. 08/2012, Benign Stereotactic Core Biopsy on the left side. 12/14/2024, US discontinued breast bx LT on the left side. 2022, Radiation Therapy on the left side. Prior Study Comparison: Screening Mammogram, [facility]. 02/01/2013 Left Diagnostic Mammogram, [facility]. 07/22/2013 Bilateral Screening Mammogram, [facility]. 01/18/2015 Bilateral Screening Mammogram, [facility]. 07/07/2017 Bilateral Screening Mammogram, [facility]. 11/22/2018 Bilateral Screening Mammogram, [facility]. 05/05/2023 Left MG 3D follow up no charge LT, [facility]. 02/08/2024 Bilateral MG 3D diag mammo w/cad SANDRO, [facility]. 08/16/2024 Left MG 3D diag mammo w/cad LT, [facility]. 12/08/2024 Left US breast limited LT, [facility]. 12/08/2024 Left MG 3D diag mammo w/cad LT, [facility]. Tissue Density: The breasts are heterogeneously dense, which may obscure small masses. Findings: Analyzed By CAD. Extensive postsurgical and posttreatment changes redemonstrated left breast. A microclip left breast prior biopsy. A few scattered benign round and punctate calcifications redemonstrated. No significant change. Ongoing surveillance follow-up within 3 years of patient's left breast cancer treatment. Overall Assessment: Probably benign, BI-RAD 3 Management: Diagnostic Mammogram of the left breast in 6 months. Results were given to the patient verbally at the time of exam. Patient should continue monthly self-breast exams. A clinical breast exam by your physician is recommended on an annual basis. This exam should not preclude additional follow-up of suspicious palpable abnormalities. [facility], , 03/10/2025 7:55 AM. Electronically signed and approved by: Miguel De Luna M.D. Radiologist
== END | disposition home or self-care (01) ==
LOC: RADMAMWWP 07:22
PROVIDERS: ATTEND Surgery
DX: R92.333 Mammographic heterogeneous density, bilateral breasts (principal); R92.1 Mammographic calcification found on diagnostic imaging of breast; Z85.3 Personal history of malignant neoplasm of breast; Z78.0 Asymptomatic menopausal state
CPT/HCPCS: 77062; 77066